=== PATIENT | female | born 1965 | race Caucasian/White ===

== ENCOUNTER 2016-03-14 07:10 | Day surgery (SDC) | payer BC ==
[2016-03-13 12:18] LABS: HEMATOCRIT 33.9 % (36.0-48.0); HEMOGLOBIN 11.4 g/dL (12-16); MCH 31.9 pg (26.0-34.0); MCHC 33.6 g/dL (31.0-37.0); MEAN PLATELET VOLUME 10.5 fL (7.4-10.4); RBC 3.57 10x6/uL (4.00-5.40); RDW 12.1 % (11.5-14.5); WBC 4.8 10x3/uL (4.8-10.8)
[~2016-03-14] VITALS: Ht 162.6 cm; Wt 65.8 kg
[~2016-03-14 07:10] MED LIST: MULTI-DAY VITAM1 TAB PO; VITAMIN D31000 UNIT PO; VITAMIN E400 UNI2 PO
[2016-03-14 08:04] VITALS: BP 97/57; Ht 162.6 cm; Wt 65.8 kg
--- NOTE | 2016-03-14 12:53 | NUR ---
THE PATIENT DOES SPEAK SOME FRISIAN BUT THERE IS A LANGUAGE BARRIER
--- NOTE | 2016-05-09 10:17 | OP ---
PATIENT NAME: DOMINIK HELM MEDICAL RECORD: [id number] :65 LOCATION:D.OPS ADMISSION DATE: SURGEON: NICOLAS BRENNER MD DATE OF OPERATION: 03/14/2016 PREOPERATIVE DIAGNOSES: 1. Hematochezia. 2. Intractably symptomatic hemorrhoids. POSTOPERATIVE DIAGNOSES: 1. Hematochezia. 2. Intractably symptomatic hemorrhoids. 3. One colon polyp. 4. Perianal skin tag. 5. Anal papilla. PROCEDURES: 1. Total colonoscopy to cecum. 2. Hot biopsy forceps polypectomy times 1. 3. Procedure for prolapse and hemorrhoids. 4. Excision of anal skin tag with closure. SURGEON: Nicolas Brenner MD MEDICARE SPECIALIST: None. BLOOD LOSS: Minimal. ANESTHESIA: General. COMPLICATIONS: None. The risks, possible complications and alternatives to procedure were explained to the patient. She elects to proceed. OPERATIVE COURSE: The patient was conveyed to the operating room electively on 03/14/2016. General anesthesia was induced by the anesthesia staff. The patient was placed in the Hoskins position. A digital rectal examination was performed. A colonoscope was inserted through the anus. It was easily advanced to the cecum. The prep was adequate. I slowly withdrew the endoscope. There was an ascending colon diverticulum. I noted no evidence of diverticulosis. I dragged the folds. I irrigated and aspirated extensively. One polyp was noted at 70 cm. This was a 7-mm sessile polyp and was removed in its entirety utilizing a hot biopsy forceps polypectomy technique. I then continued withdrawing the endoscope. Retroflexed views obtained in the rectum. I then unretroflexed the scope and removed it under direct vision. The patient was then positioned in the lithotomy position. The anus and perianal areas were sterilely prepped and draped. I dilated the anus laterally to 3 fingers. A PPH dilator retractor was sewn to the anoderm at 4 points. One cm cephalad to the clear retractor, I applied a pursestring suture of 2-0 Prolene. This was a mucosal application of the pursestring suture. I inserted the PPH stapling device with the anvil cephalad to the pursestring suture, which was then tightened and tied. I engaged the PPH device. It was held in place OPERATIVE REPORT [id number] DOMINIK HELM for 3 minutes and then fired. It was then removed under direct vision. There was an entire mucosal donut within the PPH stapling device. Bleeding was controlled along the anastomotic mucosal staple line with interrupted [id number] 3-0 Vicryl sutures. I examined the posterior wall of the vagina. There have been no injury to the posterior wall of the vagina. There was an anal papilla present. This was cauterized. The patient had 1 anal skin tag. Preoperatively, she had asked me to excise any skin tags that were present as these caused her discomfort. Through the use of double curvilinear incisions, I excised the skin tag as well as an external hemorrhoid. Submucosal flaps were created sharply. Meticulous hemostasis was achieved with the electrocautery. A 3-0 Vicryl suture was then applied at the staple line at the apex of the skin tag. I then closed the anal mucosa with a running locking 3-0 Vicryl suture. I continued this out on to the anoderm in a running intracuticular fashion and then tied. I buried the knot. U-shaped anal retractors were placed. Gelfoam was applied within the anus and lower rectum. A combination of Marcaine and steroid preparation were used to infiltrate the perianal tissues. A topical anesthetic was applied to the external hemorrhoids. The patient was then extubated and conveyed to post-anesthesia care unit where she was in stable condition. She will be dismissed home on Colace as well as Valium and [place]. I will see her in the office in 2-3 weeks. TRANSINT:[id number] Voice Confirmation ID: [id number] DOCUMENT ID: [id number] NICOLAS BRENNER MD at 1017 CC: CLIFTON SKAGGS M.D. [id number] DICTATION DATE: 03/14/16 1230 LABOR RELATIONS DIRECTOR: 03/14/16 2145 [facility] 03/14/16 [id number] [place] [address]
== END 2016-03-14 19:10 | disposition home or self-care (01) ==
LOC: D.OPS 07:10 → D.PAN 09:45 → D.OPS 19:10
PROVIDERS: Anesthesiology
DX: K64.8 Other hemorrhoids (principal); D12.4 Benign neoplasm of descending colon; K64.4 Residual hemorrhoidal skin tags; Z79.899 Other long term (current) drug therapy

== ENCOUNTER 2016-05-04 12:47 | Day surgery (SDC) | payer BC ==
[~2016-05-04] VITALS: Ht 162.6 cm; Wt 65.3 kg
[2016-05-04 13:47] LABS: HEMATOCRIT 32.3 % (36.0-48.0); MCH 31.6 pg (26.0-34.0); MCHC 34.1 g/dL (31.0-37.0); MCV 92.8 fL (80.0-100.0); MEAN PLATELET VOLUME 9.3 fL (7.4-10.4); RBC 3.48 10x6/uL (4.00-5.40); RDW 12.3 % (11.5-14.5); WBC 4.4 10x3/uL (4.8-10.8)
[2016-05-04] MEDS ORDERED: HYDROCODON-ACE1 EAC7 PO (13:49)
[2016-05-04 13:54] VITALS: Ht 162.6 cm; Wt 65.3 kg
[2016-05-04 14:30] LABS: HCG SERUM NEGATIVE (NEGATIVE)
--- NOTE | 2016-05-04 18:27 | NUR ---
1745 BACK FROM EXAM UNDER ANESTHESIA. RESP EVEN AND NONLABORED. TALK- ING AND SMILING. ICE CHIPS SERVED. DENIES NAUSEA.PAIN A 2.
--- NOTE | 2016-05-04 18:37 | NUR ---
Bj5 TAKING IN SOME LIQUIDS AND MARLENE.
--- NOTE | 2016-05-04 19:17 | NUR ---
1905 HAVING SOME SPASMS ORDER FOR VALIUM ENTERED.
--- NOTE | 2016-05-04 19:18 | NUR ---
1910 IV DCD CATHETER INTACT WENT OVER DISCHARGE INSTRUCTIONS AND VERBALLY UNDERSTANDS.
--- NOTE | 2016-05-04 19:41 | NUR ---
1925 TO HOME VIA W/C WITH FAMILY.
--- NOTE | 2016-06-08 09:40 | HP ---
PATIENT: DOMINIK HELM MEDICAL RECORD: [id number] ACCOUNT: [id number] LOCATION:DNenaOPS : 65 ADMISSION DATE: 05/04/16 HISTORY AND PHYSICAL EXAMINATION CHIEF COMPLAINT: Pain. HISTORY OF PRESENT ILLNESS: The patient has had intractable pain following a procedure for prolapse and hemorrhoids as well as excision of a skin tag. Her pain really is not improving. She is to undergo an anal evaluation under anesthesia, drainage of any abscess, if I identify a possible lateral internal sphincterotomy, if a fissure is identified, possible anal botox, if I believe that her condition is due to anal spasms, drainage of any hematoma that I might identify. I told the patient and her that this will be an exploratory type of procedure. The risks, possible complications and alternatives to procedure were explained to the patient. She elects to proceed. Discussion specifically included, but was not limited to, bleeding requiring an emergency reoperation, infection, the possibility that the procedure may not be successful in improving her symptoms and could actually make her pain worse. PAST MEDICAL AND SURGICAL HISTORY: Hematuria, history of hemorrhoid surgery, history of polypectomy, history of , history of abdominoplasty, history of nasal surgery. SOCIAL HISTORY: Nonsmoker. HOME MEDICATIONS: Multivitamins, vitamin D3, vitamin E. ALLERGIES: No known drug allergies. REVIEW OF SYSTEMS: Negative for CVA or seizures. Negative for diabetes or thyroid problems. The review of systems is negative other than as is described above. PHYSICAL EXAMINATION: GENERAL: The patient does not appear acutely ill. She does not appear chronically ill. VITAL SIGNS: Reviewed. HEAD: External ears appear normal. EYES: Extraocular movements are intact. NECK: Trachea is midline. CHEST: No intercostal retractions. PULMONARY: Nonlabored, no stridor. ABDOMEN: No peritonitis with movement. IMPRESSION: Intractable anal pain following an anal operation. PLAN: As described above. TRANSINT:[id number] Voice Confirmation ID: [id number] DOCUMENT ID: [id number] HISTORY AND PHYSICAL [id number] DOMINIK HELM ROBERT MD at 0940 CC: [id number] DICTATION DATE: 05/04/16 1557 DIGITAL SALES DIRECTOR: 05/04/16 1648 [facility] 05/04/16 [facility] [address] [place] [address]
--- NOTE | 2016-06-08 09:40 | OP ---
PATIENT NAME: DOMINIK HELM MEDICAL RECORD: [id number] :65 LOCATION:D.OPS ADMISSION DATE: SURGEON: NICOLAS BRENNER MD DATE OF OPERATION: 05/04/2016 PREOPERATIVE DIAGNOSIS: Intractable anal pain following a procedure for prolapse and hemorrhoids. POSTOPERATIVE DIAGNOSES: Intractably anal pain following a procedure for prolapse and hemorrhoids with an acute wide posterior lying anal fissure. PROCEDURE: Anal evaluation under anesthesia. Injection of 100 units of therapeutic intralesional Botox into the lateral internal sphincter at 3 o'clock. SURGEON: Nicolas Brenner MD. PAEDIATRICIAN: None. BLOOD LOSS: Minimal. ANESTHESIA: General. COMPLICATIONS: None. The patient was found to have an acute fissure located in the posterior midline. There was no recurrent prolapse. No hematoma. The anastomotic staple line was intact. There was no evidence of infection. No purulence. No fistula. We had talked about several options if a fissure was identified. She did have an episode of constipation soon after her initial operation and I believe that probably this resulted in the anal fissure. We discussed lateral internal sphincterotomy versus intralesional Botox and the patient was in favor of intralesional Botox as it would be reversible. She was starting to develop some anal stricturing; however, this was not marked at the time of this operative procedure. OPERATIVE COURSE: The patient was conveyed to the operating room electively on 05/04/2016. General anesthesia was induced by the anesthesia staff. The patient was placed in lithotomy position with the buttocks taped laterally. The anus and perianal areas were sterilely prepped and draped. I examined the posterior vagina. I noted no evidence of rectovaginal fistula. U-shaped anal retractors were placed. I noted no significant enlarged internal or external hemorrhoidal tissue. I examined the entire anus as well as the lower rectum. The findings were as listed above. I reconstituted 100 units of therapeutic Botox and this was injected into the internal anal sphincter at 3 o'clock. This had been reconstituted in 1.5 cc of normal saline. Due to wide fissure, I elected to inject 100 units of Botox rather than the normal 50 units of Botox. There was no bleeding. Gelfoam was applied within the anus and lower rectum. A topical anesthetic cream was applied to the external hemorrhoids. OPERATIVE REPORT [id number] DOMINIK HELM The patient was then extubated and conveyed to post-anesthesia care unit where she was in stable condition. I have discussed the operative findings with the patient's family. I told them that it is going to take a week or two before she can obtain some significant relief. She can be dismissed home on Colace as well as Valium and [place]. TRANSINT:[id number] Voice Confirmation ID: [id number] DOCUMENT ID: [id number] NICOLAS BRENNER MD at 0940 CC: CLIFTON SKAGGS M.D. [id number] DICTATION DATE: 05/04/16 170 SIGNAL SYSTEM TESTING MAINTAINER: 05/04/16 2154 [facility] 05/04/16 [id number] [place] [address]
== END 2016-05-04 19:25 | disposition home or self-care (01) ==
LOC: D.OPS 12:47 → D.PAN 15:00 → D.OPS 15:45 → D.PAN 16:40 → D.OPS 19:25
PROVIDERS: Anesthesiology
DX: K62.89 Other specified diseases of anus and rectum (principal); G89.18 Other acute postprocedural pain; K60.2 Anal fissure, unspecified

== ENCOUNTER → 2016-12-11 15:52 | Outpatient (CLI) | payer BC ==
[2016-05-04 13:54] VITALS: BMI 24.7
[~2016-12-11 15:52] MED LIST changes: +HYDROCODON-ACE1 EAC7 PO
== END | disposition home or self-care (01) ==
LOC: D.MAMMO 11:30
DX: N64.4 Mastodynia (principal)